=== PATIENT | female | born 1975 | race African-American/Black ===

== ENCOUNTER 2017-04-22 10:11 | Day surgery (SDC) | payer SELFPAY ==
[2017-04-12 09:53] VITALS: BMI 24.7
[2017-04-22] MEDS ORDERED: GUM MASTIC/STORAX/MSAL/ALCOHOL 1 DRP DROPSBTL MC ONE (13:24)
[2017-04-22] MEDS ORDERED: MIDAZOLAM HCL 2 MG/2 ML SINGLE DOSE VIAL ONE (13:32)
[2017-04-22] MEDS ORDERED: LIDOCAINE HCL/PF 2% SDV 5ML VIAL ONE (13:40)
[2017-04-22] MEDS ORDERED: ROCURONIUM BROMIDE 50 MG/5 ML VIAL ONE (13:40)
[2017-04-22] MEDS ORDERED: PROPOFOL 20 ML ONE (13:40)
[2017-04-22] MEDS ORDERED: NEOSTIGMINE METHYLSULFATE 0.5 MG/ML - 10 ML MDV ONE (15:28)
[2017-04-22] MEDS ORDERED: DEXAMETHASONE SOD PHOSPHATE 4 MG/1 ML VIAL ONE (15:28)
[2017-04-22] MEDS ORDERED: KETOROLAC TROMETHAMINE 30 MG/1 ML VIAL ONE (15:28)
[2017-04-22] MEDS ORDERED: ONDANSETRON 4 MG/2 ML VIAL ONE (15:28)
[2017-04-22] MEDS ORDERED: GLYCOPYRROLATE 0.2 MG/1 ML VIAL ONE ×2 (15:29)
[2017-04-22] MEDS ORDERED: DESFLURANE GAS 240 ML BOTTLE IH ONE (16:07)
[2017-04-22] MEDS ORDERED: ONDANSETRON 4 MG/2 ML VIAL IVPUSH PRN (16:17)
[2017-04-22] MEDS ORDERED: oxyCODONE HCL 5 MG TABLET PO PRN ×2 (16:17)
[2017-04-22] MEDS ORDERED: LACTATED RINGERS SOLUTION 1,000 ML IV SCH (16:30)
[2017-04-22] MEDS ORDERED: PROMETHAZINE HCL 25 MG/1 ML VIAL IVPUSH PRN (17:06)
[2017-04-22 18:45] VITALS: TEMP 97.4
[2017-04-22 19:29] VITALS: BP 132/70; PULSE 78
== END 2017-04-22 19:29 | disposition home or self-care (01) ==
LOC: FASU 10:11
PROVIDERS: ATTEND Surgery
PROC: 0J083ZZ Alteration of Abdomen Subcutaneous Tissue and Fascia, Percutaneous Approach (ICD-10-PCS; principal; 2017-04-22 14:09)
DX: Z41.1 Encounter for cosmetic surgery (principal)
CPT/HCPCS: 84703; 94760